=== PATIENT | male | born 1990 | race Caucasian/White ===

== ENCOUNTER 2023-06-13 10:05 | Emergency (ER) | payer OTHER, SELFPAY ==
[2023-06-13] VITALS (11 sets, daily range): BP systolic 140; BP diastolic 90; PULSE 96–120; RESP 10–36; TEMP 36.5; O2SAT 93–97; BMI 28.7
--- NOTE | 2023-06-13 10:17 | XR_ITS ---
The [address] [address] Patient Name: YNES HLOLIS MRN: [id number] date: 1990 Sex: M Assigned Patient Location: ER Current Patient Location: ER Accession/Order Number: [id number] Exam Date: 06/13/2023 10:22 Report Date: 06/13/2023 11:25 At the request of: KATIANA WEST Procedure: XR elbow LT min 3V EXAM: XR elbow LT min 3V HISTORY: Rule out foreign body, needle COMPARISON: None TECHNIQUE: 4 views of the left elbow were obtained. FINDINGS: Anterior fat pad is grossly unremarkable, no obvious posterior fat pad is seen. No definite acute fracture or dislocation. No significant focal osseous or articular abnormalities are identified. Mild soft tissue swelling suggested anteriorly. No obvious opaque foreign body. XR/XR elbow LT min 3V IMPRESSION: Left elbow study fails to demonstrate obvious focal bone abnormality. Mild soft tissue swelling suggested anteriorly. No obvious opaque foreign body. Follow-up as needed. Electronically authenticated by: CHINA SUAREZ Date: 06/13/2023 11:25
--- NOTE | 2023-06-13 10:17 | ECG_ITS ---
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
--- NOTE | 2023-06-13 10:17 | XR_ITS ---
The [address] [address] Patient Name: YNES HOLLIS MRN: [id number] date: 1990 Sex: M Assigned Patient Location: ER Current Patient Location: ER Accession/Order Number: [id number] Exam Date: 06/13/2023 10:22 Report Date: 06/13/2023 11:09 At the request of: KATIANA WEST Procedure: XR chest 1V EXAM: XR chest 1V HISTORY: . Tachycardia, elevated blood pressure . COMPARISON: None TECHNIQUE: Single view of the chest FINDINGS: Heart and vascularity are unremarkable. Lungs are free of focal infiltrates. Grossly no bony abnormality is appreciated. EKG leads overlie the chest. XR/XR chest 1V IMPRESSION: No acute heart or lung disease identified. Electronically authenticated by: PJ SOTO Date: 06/13/2023 11:09
[2023-06-13 10:35] LABS: Basophils Percent Auto 0.2 % (0.2-2.0); Eosinophils Percent Auto 0.2 % (0.9-7.0); Hematocrit 45.5 % (42.0-54.0); Hemoglobin 15.4 g/dL (14.0-18.0); Immature Granulocytes Abs Auto 0.04 10^3/uL (0.00-0.03); Immature Granulocytes Pct Auto 0.3 % (0.0-0.5); Lymphocytes Absolute Auto 1.3 10^3/uL (1.2-3.8); Lymphocytes Percent Auto 10.5 % (20.5-60.0); Mean Corpuscular HGB Conc 33.8 g/dL (29.9-35.2); Mean Corpuscular Volume 94.4 fL (80.0-94.0); Mean Platelet Volume 9.7 fL (9.5-13.5); Monocytes Absolute Auto 0.9 10^3/uL (0.3-0.8); Monocytes Percent Auto 7.8 % (1.7-12.0); Neutrophils Absolute Auto 9.8 10^3/uL (1.4-6.5); Platelet Count 385 10^3/uL (150-450); Red Blood Count 4.82 10^6/uL (4.70-6.10); Red Cell Distribution Width 12.5 % (11.0-15.0); White Blood Count 12.1 10^3/uL (4.0-11.0)
--- NOTE | 2023-06-13 10:36 | ED_ITS ---
HPI - Skin/Abscess/Foreign Bdy General Chief complaint: Skin/Abscess/Foreign Body Stated complaint: UPPER EXTREMITY PAIN L ARM Time Seen by Provider: 06/13/23 10:12 Source: patient Mode of arrival: walk-in Limitations: no limitations History of Present Illness HPI narrative: 33-year-old male presents for left elbow redness. He is concerned about an infection. He states he injected cocaine there last night and the needle did not break off. No fever or vomiting. He was noted to be tachycardic on arrival. No drainage from this area. Related Data Home Medications Medication Instructions Recorded Confirmed sertraline 25 mg tablet (Zoloft) 25 mg PO DAILY 06/13/23 06/13/23 Previous Rx's Medication Instructions Recorded cephalexin 500 mg capsule 500 mg PO QID 10 days #40 caps 06/13/23 sulfamethoxazole 800 1 tab PO BID 10 days #20 tabs 06/13/23 mg-trimethoprim 160 mg tablet (Bactrim DS) Allergies Allergy/AdvReac Type Severity Reaction Status Date / Time No Known Drug Allergies Allergy Verified 06/13/23 10:11 Review of Systems ROS Narrative A ten point review of systems is negative except as noted above. PFSH PFSH Social History Smoking status: Heavy tobacco smoker Exam Narrative Exam Narrative: Nurses note and vital signs reviewed and patient is not hypoxic. General: The patient appears well and in no apparent distress. Patient is resting comfortably on cart. Skin: Warm, dry, no pallor noted. There is no rash noted. Head: Normocephalic, atraumatic Eye: Normal conjunctiva, no drainage Ears, Nose, Mouth, and Throat: oral mucosa is moist. Nares patent. Cardiovascular: Regular Rate and Rhythm, tachycardic Respiratory: Patient is in no distress, no accessory muscle use, lungs are clear to auscultation, no wheezing, rales or rhonchi Back: non-tender GI: Normal bowel sounds, no tenderness to palpation, no masses appreciated. No rebound, guarding, or rigidity noted. Musculoskeletal: Left antecubital fossa is examined. There is erythema. No raised area or fluctuance or drainage. Neurological: A&O, normal speech Psychiatric: Cooperative Constitutional Vital Signs, click to edit/add: Last Vital Signs Temp 97.7 F 06/13/23 10:11 Pulse 118 H 06/13/23 10:11 Resp 20 06/13/23 10:11 BP 140/90 06/13/23 10:11 Pulse Ox 95 06/13/23 10:11 Course Vital Signs Vital signs: Vital Signs Temperature 97.7 F 06/13/23 10:11 Pulse Rate 118 H 06/13/23 10:11 Respiratory Rate 20 06/13/23 10:11 Blood Pressure 140/90 06/13/23 10:11 Pulse Oximetry 95 06/13/23 10:11 Temperature 97.7 F 06/13/23 10:11 Pulse Rate 118 H 06/13/23 10:11 Respiratory Rate 20 06/13/23 10:11 Blood Pressure 140/90 06/13/23 10:11 Pulse Oximetry 95 06/13/23 10:11 MDM - Skin/Abscess/Foreign Bdy MDM Narrative Medical decision making narrative: Blood work is nonspecific and x-ray shows no foreign body. His heart rate has come down. He is given a dose of IV vancomycin and does not require admission to the hospital at this point. He is prescribed Bactrim and Keflex. My clinical impression is that he has cellulitis. I do not have clinical suspicion of an abscess. There is no evidence of foreign body. Differential Diagnosis Differential diagnosis: Likely other (Cellulitis, abscess, foreign body) Lab Data Attestation: I reviewed the patient's lab results. Labs: Lab Results 06/13/23 Range/Units 10:29 WBC 12.1 H (4.0-11.0) 10^3/uL RBC 4.82 (4.70-6.10) 10^6/uL Hgb 15.4 (14.0-18.0) g/dL Hct 45.5 (42.0-54.0) % MCV 94.4 H (80.0-94.0) fL MCH 32.0 (25.9-34.0) pg MCHC 33.8 (29.9-35.2) g/dL RDW 12.5 (11.0-15.0) % Plt Count 385 (150-450) 10^3/uL MPV 9.7 (9.5-13.5) fL Neut % (Auto) 81.0 H (43.0-75.0) % Lymph % (Auto) 10.5 L (20.5-60.0) % [place] % (Auto) 7.8 (1.7-12.0) % Eos % (Auto) 0.2 L (0.9-7.0) % Baso % (Auto) 0.2 (0.2-2.0) % Neut # (Auto) 9.8 H (1.4-6.5) 10^3/uL Lymph # (Auto) 1.3 (1.2-3.8) 10^3/uL [place] # (Auto) 0.9 H (0.3-0.8) 10^3/uL Eos # (Auto) 0.0 (0.0-0.7) 10^3/uL Baso # (Auto) 0.0 (0.0-0.1) 10^3/uL Abs Immat Gran (auto) 0.04 H (0.00-0.03) 10^3/uL Imm/Tot Granulo (auto) 0.3 (0.0-0.5) % Sodium 142 (136-145) mmol/L Potassium 3.6 (3.5-5.1) mmol/L Chloride 102 (98-107) mmol/L Carbon Dioxide 26.0 (21.0-32.0) mmol/L Anion Gap 17.6 BUN 9.0 (7.0-18.0) mg/dL Creatinine 0.83 (0.70-1.30) mg/dL Est GFR ( Amer) >60 (>=60) Est GFR (Non-Af Amer) >60 (>=60) BUN/Creatinine Ratio 10.8 Glucose 96 (74-106) mg/dL Calcium 9.6 (8.5-10.1) mg/dL Imaging Data Chest x-ray: Radiologist's impression: ITS Impressions Chest X-Ray 06/13/23 10:17 IMPRESSION: No acute heart or lung disease identified. Electronically authenticated by: PJ SOTO Date: 06/13/2023 11:09 Elbow X-Ray 06/13/23 10:17 IMPRESSION: Left elbow study fails to demonstrate obvious focal bone abnormality. Mild soft tissue swelling suggested anteriorly. No obvious opaque foreign body. Follow-up as needed. Electronically authenticated by: CHINA SUAREZ Date: 06/13/2023 11:25 ECG Data Attestation: I personally reviewed and interpreted this ECG as follows: (EKG on my interpretation shows sinus tachycardia with a rate of 109.) Discharge Plan Discharge Chief Complaint: Skin/Abscess/Foreign Body Clinical Impression: Cellulitis Patient Disposition: Home, Self-Care Time of Disposition Decision: 11:32 Condition: Good Mode of Transportation: Private Vehicle Prescriptions / Home Meds: New sulfamethoxazole-trimethoprim [Bactrim DS] 800-160 mg tablet 1 tab PO BID 10 Days Qty: 20 0RF cephalexin 500 mg capsule 500 mg PO QID 10 Days Qty: 40 0RF No Action sertraline [Zoloft] 25 mg tablet 25 mg PO DAILY Instructions: Cellulitis (ED), Warm Compress or Soak (ED) Stand Alone Forms: Portal Instructions Referrals: Physician,Non-Staff, MD [Primary Care Provider] - 1 week
[2023-06-13 10:49] LABS: Anion Gap 17.6; BUN Creatinine Ratio 10.8; Calcium 9.6 mg/dL (8.5-10.1); Chloride 102 mmol/L (98-107); Estimated GFR (African America >60 (>=60); Estimated GFR (Non-African Ame >60 (>=60); Glucose 96 mg/dL (74-106); Potassium 3.6 mmol/L (3.5-5.1); Sodium 142 mmol/L (136-145)
[2023-06-13] MEDS: VANCOMYCIN HCL 1,250 MG in 0.9 % SODIUM CHLORIDE 500 ML 250 MG IV (11:44)
== END 2023-06-13 13:57 | disposition home or self-care (01) ==
PROVIDERS: Emergency Provider Emergency Medicine
DX: L03.113 Cellulitis of right upper limb (principal); F17.200 Nicotine dependence, unspecified, uncomplicated; F14.90 Cocaine use, unspecified, uncomplicated
CPT/HCPCS: 36415; 71045; 73080; 80048; 85025; 93005; 96365; 96366; 99285; J3370